=== PATIENT | female | born 2000 | race Caucasian/White ===

== ENCOUNTER 2024-07-10 16:05 | Emergency (ER) | payer SELFPAY ==
[2024-07-10 16:12] VITALS: BP 139/85; PULSE 107; RESP 20; TEMP 36.9; O2SAT 99
[2024-07-10 16:13] VITALS: PULSE 108; RESP 18; O2SAT 96; BMI 31.7
--- NOTE | 2024-07-10 17:16 | EKG_ITS ---
[facility] Test Date: 2024-07-10 Pat Name: JORDAN STEWART Department: Room: - Gender: Female El Teacher: : 2000 Requested By: Miguel Deal Order Number: [id number] Reading MD: Miguel Deal Measurements Intervals Senath Rate: 75 P: 42 PA: 136 QRS: 53 QRSD: 84 T: 14 QT: 376 QTc: 420 Interpretive Statements SINUS RHYTHM WITH SINUS ARRHYTHMIA NONSPECIFIC T-WAVE ABNORMALITY No previous ECG available for comparison /store/S0/[id number].pdf
[2024-07-10 18:06] VITALS: BP 119/69; PULSE 70; RESP 13; TEMP 36.3; O2SAT 99
--- NOTE | 2024-07-10 18:23 | PD.EDOVER ---
ED Overdose RME/HPI General Chief Complaint: Overdose Stated Complaint: OVERDOSE Arrival date/time: 07/10/24 16:05 RME / HPI RME / HPI Narrative: 23 year old female presents to the ED BIBA from home for drug overdose today. Patient states she was having a bad day today and decided to use what she thought was cocaine. States her was home and initially did not tell him. However began to feel unwell and told her , who witnessed the patient having difficulty breathing and lips turning blue. reports he administered 2 doses of Narcan and the patient woke up and cyanosis of the lips went away. State he called EMS to make sure the patient was okay. While in the ED patient reports feeling better and declined having any further evaluation. Patient states she has not used any drugs for 3 years. Related Data Home Medications ?Medication ?Instructions ?Recorded ?Confirmed meloxicam 7.5 mg tablet 7.5 mg PO QDAY 11/30/20 12/01/20 Allergies Allergy/AdvReac Type Severity Reaction Status Date / Time hydrocodone (From [place]) Allergy Intermediate Vomiting Verified 12/01/20 08:41 Review of Systems Review of Systems Systems Reviewed: All systems reviewed, normal except as documented Past Medical History Past Medical History NEUROLOGIC: Negative Neurological Disorders CARDIAC: Negative Cardiac Disorders GASTROINTESTINAL: Negative Gastrointestinal Disorders GENITOURINARY: Positive Genitourinary Disorders and Kidney Stones (had to have nephrostomy tube placed/during ) REPRODUCTIVE: Positive Previous Pregnancies (X1) ENDOCRINE: Negative Endocrine Disorders Family History FAMILY HISTORY: Negative Family Psychiatric Problems, Family Respiratory Disorders, Family Cardiac Disorders, Family Gastrointestinal Problems, Family Cancer, Family Surgery or Family Anesthesia Reaction Surgical History SURGICAL: Positive Section (x1 2016); Negative Pacemaker Social History SMOKING STATUS: Current some day smoker ED Exam Narrative Physical exam: GENERAL APPEARANCE:? alert and oriented x 4, well-developed, well-nourished, no acute distress HEENT: normocephalic, atraumatic NECK: supple LUNGS: no respiratory distress, normal effort HEART: good peripheral perfusion ABDOMEN: non distended EXTREMITIES:? atraumatic NEUROLOGIC: awake; alert and oriented x4; cranial nerves II-XII grossly intact PSYCHIATRIC:? slightly depressed affect SKIN: warm, dry, normal color; no rashes Course Quality Measures none Orders Category Date Time Status EKG (ED ONLY) *Do not use* NOW Care 07/10/24 17:16 Completed EKG (ED Only) Stat Exams 07/10/24 17:16 Draft Vital Signs Vital signs: Vital Signs Temperature 98.5 F 07/10/24 16:12 Pulse Rate 107 H 07/10/24 16:12 Respiratory Rate 20 07/10/24 16:12 Blood Pressure 139/85 H 07/10/24 16:12 Pulse Oximetry (%) 99 07/10/24 16:12 Oxygen Delivery Method Room Air 07/10/24 16:12 Pulse ox is 99% on room air which is adequate. Overdose MDM Narrative MDM Narrative:: I, Promise Jim, am scribing for and in the presence of Dr. Luong. Assessment: Drug overdose Discussed with her the use of drugs. States she hadn't used for 3 years and realized she should not use at all in the future. Patient contracted with me that she would not use drugs and keep her better informed. states they have plenty of Narcan at home. This patient is choosing to leave against medical advice. I have personally explained to the patient that choosing to do so may result in permanent bodily harm or . I discussed a great length that without further evaluation and monitoring there may be unforeseen circumstances and deterioration causing permanent bodily harm or as a result of their choice. The patient is alert, oriented and competent at this time. The patient states that they are aware of the serious risks as explained, but they continue to wish to leave against medical advice. Patient data External records reviewed:: [facility] previous records and EMS form Clinical information provided by:: patient, EMS and spouse Social determinants that could affect healthcare access:: substance use Patient has the following chronic illnesses:: None reported How is presenting disease/condition affected by chronic disease/condition?: no chronic disease Evaluation data The following diagnostics were reviewed and interpreted by me:: EKG tracing(s) (Sinus rhythm, rate 75, WA 136ms, QT/QTc 376/420ms. ) Lab and/or radiology exams considered but not ordered:: None Interpretation Summary: as noted above Medications / Prescriptions Medications or Prescriptions considered but not ordered:: None Medication administrations:: none Consultations Consultation(s) initiated? (list below): No Diagnosis Overdose Differential Diagnosis: cocaine intoxication, poisoning by opiate or related narcotic and drug overdose Most likely diagnosis given after review of the tests above:: drug overdose Admission Indicated Admission indicated?: not indicated Admission Request Was there a request for admission?: No Disposition Plan Disposition Plan: other (specify) (Patient signed out AMA ) Discharge Plan Plan Patient Disposition: Left Against Medical Advice Prescriptions/Referrals Prescriptions/Med Rec: No Action meloxicam 7.5 mg Tablet 7.5 mg PO QDAY Referrals: Renae Elena MD [Primary Care Provider] - In 1 week Problem List Clinical Impression: Drug overdose Patient/Caregiver Discharge Instructions Additional Instructions: As discussed in the ED, stop using drugs. Print Language: Barbadian
== END 2024-07-10 19:02 | disposition left against medical advice (07) ==
PROVIDERS: Emergency Provider Emergency Medicine; PCP Family Medicine
DX: T40.5X1A Poisoning by cocaine, accidental (unintentional), initial encounter (principal); R06.00 Dyspnea, unspecified; R23.0 Cyanosis; I49.8 Other specified cardiac arrhythmias; Z53.29 Procedure and treatment not carried out because of patient's decision for other reasons
CPT/HCPCS: 93005; 96127; 99283